=== PATIENT | male | born 1975 | race Caucasian/White ===

== ENCOUNTER → 2017-08-17 | Outpatient (CLI) | payer OTHER | END | disposition home or self-care (01) | LOC: CFH 15:38 | PROVIDERS: ATTEND Orthopaedic Surgery | DX: S93.492A Sprain of other ligament of left ankle, initial encounter (principal); S93.431A Sprain of tibiofibular ligament of right ankle, initial encounter; S93.411A Sprain of calcaneofibular ligament of right ankle, initial encounter; X58.XXXA Exposure to other specified factors, initial encounter; Y93.89 Activity, other specified; Y92.89 Other specified places as the place of occurrence of the external cause; Y99.8 Other external cause status ==